=== PATIENT | female | born 1955 | race African-American/Black ===

== ENCOUNTER 2018-03-24 00:36 | Emergency (ER) | payer OTHER ==
[~2018-03-24] VITALS: Ht 157.5 cm; Wt 81.8 kg
[~2018-03-24 00:36] MED LIST: FERR-89 PO; LORA10TA7 PO; OMEP20 PO
[2018-03-24] MEDS ORDERED: HYDR25TA PO (00:48)
[2018-03-24] MEDS ORDERED: DSS100 PO (00:48)
[2018-03-24] MEDS ORDERED: HYDR200T4 PO (00:48)
[2018-03-24] MEDS ORDERED: AMIT25TA9 PO (00:48)
[2018-03-24] MEDS ORDERED: CHOL20004 PO (00:48)
[2018-03-24] MEDS ORDERED: METH500T6 PO (00:48)
[2018-03-24] MEDS ORDERED: SERT50TA12 PO (00:48)
[2018-03-24] MEDS ORDERED: OXYC-522 PO (00:48)
[2018-03-24 02:21] VITALS: BP 218/127
[2018-03-24] MEDS ORDERED: HYDROCODONE/ACETAMINOPHEN 5-325 MG TABLET PO ONE (02:30)
[2018-03-24] MEDS ORDERED: HYDROCHLOROTHIAZIDE 25 MG TABLET PO ONE (02:30)
[2018-03-24] MEDS ORDERED: OxyCODONE HCL/ACETAMINOPHEN 5-325 MG TABLET PO ONE (03:00)
== END 2018-03-24 03:33 | disposition left against medical advice (07) ==
LOC: EMS 00:37
DX: I10 Essential (primary) hypertension (principal); R51 Headache; Z88.6 Allergy status to analgesic agent
CPT/HCPCS: 99283

== ENCOUNTER 2018-09-17 21:02 | Emergency (ER) | payer OTHER ==
[~2018-09-17] VITALS: Ht 157.5 cm; Wt 81.8 kg
[~2018-09-17 21:02] MED LIST changes: +AMIT25TA9 PO; +CHOL20004 PO; +DSS100 PO; +HYDR200T4 PO; +HYDR25TA PO; -LORA10TA7 PO; +METH500T6 PO; -OMEP20 PO; +OXYC-522 PO; +SERT50TA12 PO
[2018-09-17 22:42] LABS: BASOPHILS % (AUTO) 1.7 % (0.0-2.0); EOSINOPHILS % (AUTO) 4.3 % (1.0-6.0); HEMOGLOBIN 13.8 g/dL (12.0-16.0); LYMPHOCYTES # (AUTO) 1.8 K/uL (1.0-4.8); LYMPHOCYTES % (AUTO) 34.6 % (22.0-44.0); MEAN CORPUSCULAR HEMOGLOBIN 30.1 pg (26.0-34.0); MEAN CORPUSCULAR HGB CONC 33.7 G/dL (31.0-37.0); MEAN CORPUSCULAR VOLUME 89 fL (80-100); MONOCYTES # (AUTO) 0.6 K/uL (0.1-1.0); MONOCYTES % (AUTO) 12.1 % (2.0-9.0); NEUTROPHILS # (AUTO) 2.5 K/uL (1.8-7.7); NEUTROPHILS % (AUTO) 47.3 % (40.0-70.0); PLATELET COUNT (AUTO) 352 K/uL (150-450); RED CELL DISTRIBUTION WIDTH 14.9 % (11.5-14.5)
[2018-09-17 22:51] LABS: ANION GAP 9 mmol/L (8-16); CALCIUM, TOTAL 9.5 mg/dL (8.8-10.5); CARBON DIOXIDE 30 mmol/L (22-29); CHLORIDE 106 mmol/L (98-107); CREATININE 0.99 mg/dL (0.60-1.30); GLOMERULAR FILTR. RATE CALC > 60 mL/min (>60); GLUCOSE,RANDOM 111 mg/dL (70-110); POTASSIUM 3.8 mmol/L (3.5-5.1); SODIUM SERUM 145 mmol/L (136-145); UREA NITROGEN, BLOOD 6 mg/dL (7-18)
[2018-09-17 23:03] LABS: PROTHROMBIN TIME 10.1 SEC (9.4-11.6)
[2018-09-17 23:06] LABS: ALANINE AMINOTRANSFERASE 38 U/L (12-78); ALBUMIN 3.7 g/dL (3.4-5.0); ALKALINE PHOSPHATASE 131 U/L (46-116); ASPARTATE AMINOTRANSFERASE 19 U/L (15-37); BILIRUBIN,TOTAL 0.2 mg/dL (0.1-1.0); CREATINE KINASE, TOTAL ONLY 111 U/L (26-192); TOTAL PROTEIN, SERUM 8.1 g/dL (6.4-8.2)
[2018-09-17 23:08] LABS: B-TYPE NATRIURETIC PEPTIDE 25 pg/mL (0-100)
[2018-09-18] MEDS ORDERED: PB/HYOSCY/ATR/SCOP/LIDO/MAALOX 55 ML BOTTLE PO ONE (00:45)
[2018-09-18 01:20] VITALS: BP 152/74
== END 2018-09-18 01:48 | disposition home or self-care (01) ==
LOC: EMS 21:03
DX: R07.89 Other chest pain (principal); I10 Essential (primary) hypertension; F32.9 Major depressive disorder, single episode, unspecified; Z88.6 Allergy status to analgesic agent
CPT/HCPCS: 93005

== ENCOUNTER 2022-10-23 21:54 | Emergency (ER) | payer MEDICARE, MEDICAID ==
[~2022-10-23] VITALS: Ht 157.5 cm; Wt 84.1 kg
[~2022-10-23 21:54] MED LIST changes: -FERR-89 PO; +FERR325T27 PO; +METH-811 PO; -METH500T6 PO; -OXYC-522 PO; +OXYC-618 PO; +SERT-439 PO; -SERT50TA12 PO
[2022-10-23] MEDS ORDERED: AmLODIPine BESYLATE 10 MG TABLET PO ONE (23:00)
[2022-10-23] MEDS: OxyCODONE HCL/ACETAMINOPHEN 5-325 MG TABLET PO ONE ×2 (23:18→23:21)
[2022-10-23] MEDS ORDERED: ACETAMINOPHEN/CODEINE 300-30 MG TABLET PO ONE (23:30)
[2022-10-23 23:32] LABS: BASOPHILS % (AUTO) 0.6 % (0.0-2.0); EOSINOPHILS % (AUTO) 1.3 % (1.0-6.0); HEMOGLOBIN 14.2 g/dL (12.0-16.0); LYMPHOCYTES # (AUTO) 1.5 K/uL (1.0-4.8); LYMPHOCYTES % (AUTO) 28.5 % (22.0-44.0); MEAN CORPUSCULAR HEMOGLOBIN 30.8 pg (26.0-34.0); MEAN CORPUSCULAR HGB CONC 33.1 G/dL (31.0-37.0); MEAN CORPUSCULAR VOLUME 93 fL (80-100); MONOCYTES # (AUTO) 0.4 K/uL (0.1-1.0); MONOCYTES % (AUTO) 7.3 % (2.0-9.0); NEUTROPHILS # (AUTO) 3.3 K/uL (1.8-7.7); NEUTROPHILS % (AUTO) 62.3 % (40.0-70.0); PLATELET COUNT (AUTO) 348 K/uL (150-450); RED BLOOD CELL COUNT(AUTO) 4.62 MIL/uL (4.00-5.20); RED CELL DISTRIBUTION WIDTH 13.5 % (11.5-14.5)
[2022-10-23 23:39] LABS: ANION GAP 7 mmol/L (8-16); CALCIUM, TOTAL 9.5 mg/dL (8.8-10.5); CARBON DIOXIDE 31 mmol/L (22-29); CHLORIDE 104 mmol/L (98-107); CREATININE 1.02 mg/dL (0.60-1.30); GLOMERULAR FILTR. RATE CALC > 60 mL/min (>60); GLUCOSE,RANDOM 104 mg/dL (70-110); POTASSIUM 3.9 mmol/L (3.5-5.1); SODIUM SERUM 142 mmol/L (136-145); UREA NITROGEN, BLOOD 13 mg/dL (7-18)
[2022-10-23 23:45] LABS: ALANINE AMINOTRANSFERASE 32 U/L (12-78); ALKALINE PHOSPHATASE 113 U/L (46-116); ASPARTATE AMINOTRANSFERASE 21 U/L (15-37); BILIRUBIN,TOTAL 0.2 mg/dL (0.1-1.0); LIPASE 69 U/L (73-393)
[2022-10-24 00:56] VITALS: BP 169/97
[2022-10-24] MEDS ORDERED: METH-659 PO (02:34)
== END 2022-10-24 01:00 | disposition home or self-care (01) ==
LOC: EMS 21:55
DX: S13.4XXA Sprain of ligaments of cervical spine, initial encounter (principal); S93.402A Sprain of unspecified ligament of left ankle, initial encounter; G89.29 Other chronic pain; M54.50 Low back pain, unspecified; I10 Essential (primary) hypertension; F32.A Depression, unspecified; Z88.5 Allergy status to narcotic agent; Y04.8XXA Assault by other bodily force, initial encounter; Y93.89 Activity, other specified; Y92.512 Supermarket, store or market as the place of occurrence of the external cause; Y99.8 Other external cause status
CPT/HCPCS: 99285; 80053; 83690; 84484; 85025; 72040; 72070; 72100; 73030; 73503; 73610; 93005; G0480